=== PATIENT | female | born 1950 | race Caucasian/White ===

== ENCOUNTER 2018-09-11 10:59 | Emergency (ER) | payer OTHER ==
[~2018-09-11] VITALS: Ht 144.8 cm; Wt 52.2 kg
[2018-09-12] MEDS ORDERED: MULTIVITAMINS1 EAC1 (09:47)
== END 2018-09-11 17:44 | disposition home or self-care (01) ==
LOC: ER 10:59
DX: S52.531A Colles' fracture of right radius, initial encounter for closed fracture (principal); W01.198A Fall on same level from slipping, tripping and stumbling with subsequent striking against other object, initial encounter; Y93.01 Activity, walking, marching and hiking; Y92.017 Garden or yard in single-family (private) house as the place of occurrence of the external cause; Y99.8 Other external cause status

== ENCOUNTER 2018-09-15 06:05 | Day surgery (SDC) | payer OTHER ==
[~2018-09-15 06:05] MED LIST: MULTIVITAMINS1 EAC1
== END 2018-09-15 17:29 | disposition home or self-care (01) ==
LOC: CIR.AMB 06:05
DX: S52.531A Colles' fracture of right radius, initial encounter for closed fracture (principal)
CPT/HCPCS: 25609; C1776

== ENCOUNTER 2018-10-02 07:29 | Outpatient (CLI) | payer OTHER | END 2018-10-02 07:41 | disposition home or self-care (01) | LOC: LAB 07:29 | DX: M81.0 Age-related osteoporosis without current pathological fracture (principal) ==

== ENCOUNTER 2018-10-15 07:34 | Outpatient (CLI) | payer OTHER | END 2018-10-15 07:36 | disposition home or self-care (01) | LOC: RAD 07:34 | DX: S52.531D Colles' fracture of right radius, subsequent encounter for closed fracture with routine healing (principal) ==

== ENCOUNTER 2020-03-23 08:45 | Emergency (ER) | payer OTHER ==
[~2020-03-23] VITALS: Ht 137.2 cm; Wt 47.6 kg
[2020-03-23] MEDS ORDERED: MEDROLPACK PO (12:21)
[2020-03-23] MEDS ORDERED: TRAMADOL HCL50 MG PO (12:21)
== END 2020-03-23 13:17 | disposition home or self-care (01) ==
LOC: ER 08:45
DX: S20.211A Contusion of right front wall of thorax, initial encounter (principal); S40.021A Contusion of right upper arm, initial encounter; S70.11XA Contusion of right thigh, initial encounter; S80.11XA Contusion of right lower leg, initial encounter; W18.09XA Striking against other object with subsequent fall, initial encounter; Y93.89 Activity, other specified; Y92.018 Other place in single-family (private) house as the place of occurrence of the external cause; Y99.8 Other external cause status

== ENCOUNTER 2020-07-18 11:49 | Outpatient (CLI) | payer OTHER ==
[~2020-07-18 11:49] MED LIST changes: +MEDROLPACK PO; +TRAMADOL HCL50 MG PO
== END 2020-07-18 16:02 | disposition home or self-care (01) ==
LOC: OFIC 805 11:49
PROVIDERS: ATTEND Otolaryngology
DX: H74.8X2 Other specified disorders of left middle ear and mastoid (principal); R42 Dizziness and giddiness

== ENCOUNTER 2021-11-27 10:12 | Inpatient (IN) | payer OTHER ==
[~2021-11-27] VITALS: Ht 137.2 cm; Wt 41.3 kg
--- NOTE | 2021-11-27 10:28 | NUR ---
SE RECIBE PTE ALERTA Y ORIENTADA X3 CUAL REFIERE CAIDA EN BRAGA HOGAR HOY EN LA MANANA. SE GOLPEO BRAGA MANO/NORBERTO LADO IZQ. AREA SE OBSERVA CON INFLAMACION, NO HEMATOMAS NI SANGRADO. SE JACKY S/V Y SE UBICA.
[2021-11-28] MEDS ORDERED: RALOXIFENE HCL60 MG (10:46)
[2021-11-28] MEDS ORDERED: PRAVASTATIN SOD40 MG (10:46)
[2021-11-28] MEDS ORDERED: ROSUVASTATIN CA20 MG (10:46)
[2021-11-28] MEDS ORDERED: TOLTERODINE TART4 MG (10:46)
[2021-11-28] MEDS ORDERED: PROAIR HFA8.5 GM (10:46)
[2021-11-28] MEDS ORDERED: VITAMIN D310 MC4 (10:46)
[2021-11-28] MEDS ORDERED: PANTOPRAZOLE SO40 MG (10:46)
[2021-11-28] MEDS ORDERED: ULTRAM50 MG PO (12:56)
== END 2021-11-28 13:29 | disposition home or self-care (01) | DRG 502 ==
LOC: ER 10:12 → SURH 16:40 → SEC-K 16:40 → SURH 16:52
PROVIDERS: ADMIT Internal Medicine; ATTEND Internal Medicine
PROC: 0PSJ04Z Reposition Left Radius with Internal Fixation Device, Open Approach (ICD-10-PCS; principal; 2021-11-27)
PROC: 0L860ZZ Division of Left Lower Arm and Wrist Tendon, Open Approach (ICD-10-PCS; 2021-11-27)
DX: S52.572A Other intraarticular fracture of lower end of left radius, initial encounter for closed fracture (principal); Z20.822 Contact with and (suspected) exposure to COVID-19; W18.09XA Striking against other object with subsequent fall, initial encounter; Y93.89 Activity, other specified; Y92.238 Other place in hospital as the place of occurrence of the external cause; Y99.8 Other external cause status

== ENCOUNTER 2021-12-21 07:08 | Outpatient (CLI) | payer OTHER ==
[~2021-12-21 07:08] MED LIST changes: +PANTOPRAZOLE SO40 MG; +PRAVASTATIN SOD40 MG; +PROAIR HFA8.5 GM; +RALOXIFENE HCL60 MG; +ROSUVASTATIN CA20 MG; +TOLTERODINE TART4 MG; +ULTRAM50 MG PO; +VITAMIN D310 MC4
== END 2021-12-21 07:15 | disposition home or self-care (01) ==
LOC: RAD 07:08
PROVIDERS: ATTEND Orthopaedic Surgery
DX: S52.532D Colles' fracture of left radius, subsequent encounter for closed fracture with routine healing (principal)

== ENCOUNTER 2021-12-26 07:38 | Outpatient (CLI) | payer OTHER | END 2021-12-26 07:45 | disposition home or self-care (01) | LOC: LAB 07:38 | PROVIDERS: ATTEND Orthopaedic Surgery | DX: E55.9 Vitamin D deficiency, unspecified (principal); M85.9 Disorder of bone density and structure, unspecified; E56.1 Deficiency of vitamin K; E21.3 Hyperparathyroidism, unspecified; E88.9 Metabolic disorder, unspecified; M81.8 Other osteoporosis without current pathological fracture ==

== ENCOUNTER → 2022-02-12 | Outpatient (CLI) | payer OTHER | END | disposition home or self-care (01) | LOC: SONOGRAMA 11:19 | PROVIDERS: ATTEND Pathology Anatomic Pathology | DX: D34 Benign neoplasm of thyroid gland (principal); E04.9 Nontoxic goiter, unspecified ==

== ENCOUNTER 2022-08-04 08:27 | Outpatient (CLI) | payer OTHER | END 2022-08-04 08:31 | disposition home or self-care (01) | LOC: RAD 08:27 | PROVIDERS: ATTEND Orthopaedic Surgery | DX: M24.532 Contracture, left wrist (principal) ==

== ENCOUNTER 2023-03-15 10:08 | Outpatient (CLI) | payer OTHER | END 2023-03-15 10:09 | disposition home or self-care (01) | LOC: NUCLEAR 10:08 | PROVIDERS: ATTEND Orthopaedic Surgery | DX: M81.0 Age-related osteoporosis without current pathological fracture (principal) ==